=== PATIENT | male | born 1980 | race African-American/Black ===

== ENCOUNTER 2022-07-26 21:03 | Emergency (ER) | payer MEDICAID ==
[~2022-07-26] VITALS: Ht 162.6 cm; Wt 72.0 kg
[2022-07-26 21:37] VITALS: BP 167/111
[2022-07-27] MEDS ORDERED: PENI500T MT (03:55)
[2022-07-27] MEDS ORDERED: IBUP-2029 MT (03:55)
[2022-07-27] MEDS ORDERED: KETOROLAC 60MG/2ML VIAL IM ONE (04:00)
[2022-07-27] MEDS ORDERED: PENICILLIN V POTASSIUM 250MG TABLET PO SCH (06:00)
== END 2022-07-27 05:08 | disposition home or self-care (01) ==
LOC: ER 21:03
DX: K04.7 Periapical abscess without sinus (principal); K02.9 Dental caries, unspecified; G89.29 Other chronic pain; I10 Essential (primary) hypertension; Z98.890 Other specified postprocedural states
CPT/HCPCS: 96372; 99283; J1885

== ENCOUNTER 2025-03-11 21:08 | Emergency (ER) | payer MEDICAID ==
[~2025-03-11] VITALS: Ht 167.6 cm; Wt 73.3 kg
[~2025-03-11 21:08] MED LIST: IBUP-2029 MT; PENI500T MT
[2025-03-11 21:16] VITALS: O2SAT 100
[2025-03-11] MEDS: IBUPROFEN 400MG TABLET PO ONE (22:53)
[2025-03-11] MEDS ORDERED: SALI7GEL TP (23:23)
[2025-03-11 23:44] VITALS: BP 137/94; PULSE 61; RESP 12; TEMP 36.6; O2SAT 100
== END 2025-03-11 23:50 | disposition home or self-care (01) ==
LOC: ER 21:08
DX: B07.0 Plantar wart (principal); M25.561 Pain in right knee; I10 Essential (primary) hypertension; Z98.890 Other specified postprocedural states; Z79.899 Other long term (current) drug therapy
CPT/HCPCS: 73562; 99283